=== PATIENT | male | born 1960 | race Caucasian/White ===

== ENCOUNTER 2019-04-28 01:32 | Emergency (ER) | payer OTHER ==
[2014-07-05 14:59] VITALS: BP 133/77
[~2019-04-28] VITALS: Ht 177.8 cm; Wt 83.9 kg
[~2019-04-28 01:32] MED LIST: DEXT30CA6 PO
--- NOTE | 2019-04-28 02:05 | PHYS DOC ---
Past History Past Medical History: Other Past Surgical History: Other Alcohol Use: None Drug Use: None Adult General Chief Complaint Chief Complaint: URINE CATHETER PROBLEM HPI HPI 58-year-old male presents with Samaniego catheter complication. The patient has had a Samaniego catheter for some time. 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 After the laceration patient with catheter in place to help him urinate more easily. The patient presents tonight because he is unable to pass urine through the catheter. It is now quite painful with lower abdominal pressure. The patient has a suprapubic and scrotal incision site that has not healed. The patient is seeing a surgeon and follow-up for this in 2 days. He is also having daily dressing changes in home. The patient is concerned that he will need to go back for additional surgery. He has been on an oral antibiotic, feels like the pressure may be building in his scrotum and inguinal area again patient denies fever or chills. The patient is diabetic. Review of Systems Review of Systems Constitutional: Denies fever or chills [] Eyes: Denies change in visual acuity, redness, or eye pain [] HENT: Denies nasal congestion or sore throat [] Respiratory: Denies cough or shortness of breath [] Cardiovascular: No additional information not addressed in HPI [] GI: Denies abdominal pain, nausea, vomiting, bloody stools or diarrhea [] : urinary retention, samaniego catheter [] Musculoskeletal: Denies back pain or joint pain [] Integument: Denies rash or skin lesions [] Neurologic: Denies headache, focal weakness or sensory changes [] Endocrine: Denies polyuria or polydipsia [] All other systems were reviewed and found to be within normal limits, except as documented in this note. Allergies Allergies Allergies Coded Allergies Type Severity Reaction Last Updated Verified meperidine Allergy Severe 07/05/14 No Physical Exam Physical Exam Constitutional: Well developed, well nourished, no acute distress, non-toxic appearance. [] HENT: Normocephalic, atraumatic, bilateral external ears normal, oropharynx moist, no oral exudates, nose normal. [] Eyes: PERRLA, EOMI, conjunctiva normal, no discharge. [] Neck: Normal range of motion, no tenderness, supple, no stridor. [] Cardiovascular:Heart rate regular rhythm, no murmur [] Lungs & Thorax: Bilateral breath sounds clear to auscultation [] Abdomen: Bowel sounds normal, soft, no tenderness, no masses, no pulsatile masses. [] Skin: Warm, dry, no erythema, no rash. [] Back: No tenderness, no CVA tenderness. [] Extremities: No tenderness, no cyanosis, no clubbing, ROM intact, no edema. [] Neurologic: Alert and oriented X 3, normal motor function, normal sensory function, no focal deficits noted. [] Psychologic: Affect normal, judgement normal, mood normal. : circumcised, bandage over suprapubic wound, clean with some blood beneath the surface. Scrotal gauze wet with urine, 2cm open incision of scrotum midline. [] EKG EKG [] Radiology/Procedures Radiology/Procedures [] Course & Med Decision Making Course & Med Decision Making Pertinent Labs and Imaging studies reviewed. (See chart for details) The patient's catheter appeared to not be functioning. It was removed by the nurse and the patient was able to spontaneously urinate without the catheter. It was urine mixed with clots and blood. We will not replace the catheter, but leave it out as he has office follow-up in 2 days and they planned to remove the catheter at that time. We will replace the dressing over the scrotum wound and leave the suprapubic dressing as it appears in tact and without complication. The patient is already on antibiotics. We will send his urine for lab analysis, but no changes will be made in his medications even if infection is found His physician can follow-up with the culture as needed. The patient is stable for discharge at this time. [] Dragon Disclaimer Dragon Disclaimer This electronic medical record was generated, in whole or in part, using a voice recognition dictation system. Departure Departure: Impression: Primary Impression: Open wound of scrotum Additional Impression: Samaniego catheter problem Disposition: 01 HOME, SELF-CARE Condition: STABLE Referrals: PCP,NO (PCP) Patient Instructions: Urinary Retention, Acute, Male, [id number], Wound Dehiscence, [id number] Problem Qualifiers Primary Impression: Open wound of scrotum Encounter type: initial encounter Qualified Codes: S31.30XA - Unspecified open wound of scrotum and testes, initial encounter Additional Impression: Samaniego catheter problem Encounter type: initial encounter Qualified Codes: T83.9XXA - Unspecified complication of genitourinary prosthetic device, implant and graft, initial encounter RAH HENAO DO Apr 28, 2019 02:05
[2019-04-28 02:38] LABS: BILIRUBIN,URINE NEG (NEG); CLARITY,URINE HAZY; COLOR,URINE YELLOW; GLUCOSE,URINE NEG (NEG); NITRITE,URINE NEG (NEG); RBC,URINE >40 /HPF (0-2); UROBILINOGEN,URINE 0.2 mg/dL (0.2 mg/dL)
[2019-04-28 02:39] LABS: BACTERIA,URINE FEW /HPF (0-FEW); SQUAMOUS EPITHELIAL CELL,UR FEW /LPF
== END 2019-04-28 02:20 | disposition home or self-care (01) ==
LOC: ER 01:32
DX: S31.30XA Unspecified open wound of scrotum and testes, initial encounter (principal); T83.9XXA Unspecified complication of genitourinary prosthetic device, implant and graft, initial encounter; Z88.8 Allergy status to other drugs, medicaments and biological substances; X58.XXXA Exposure to other specified factors, initial encounter; Y93.89 Activity, other specified; Y92.89 Other specified places as the place of occurrence of the external cause; Y99.8 Other external cause status
CPT/HCPCS: 81001; 87086; 99284

== ENCOUNTER → 2021-04-29 | Emergency (ER) | payer OTHER ==
[~2021-04-29] VITALS: Ht 177.8 cm; Wt 79.5 kg
[~2021-04-29] MED LIST changes: +CONTRAST GIVEN. MC PRN; +IOHEXOL 300 MG/ML 75 ML VIAL. IV ONE
[2021-04-29 11:54] VITALS: BP 133/77
--- NOTE | 2021-04-29 13:14 | PHYS DOC ---
Past History Past Medical History: Diabetes, Kidney Stones, Other (MINERVA KHAN APRN) Past Surgical History: Other (MINERVA KHAN APRN) Alcohol Use: None Drug Use: None (MINERVA KHAN APRN) General Adult EDM: Chief Complaint: GROIN PAIN HPI: HPI: Patient is a 60-year-old male presents with right-sided scrotal pain and right- sided facial swelling. Patient states his right eye was swollen shut due to the swelling. Patient states he did have some dental pain and called his PCP and was placed on Bactrim. Patient been taking the antibiotic for 3 days. Denies trouble breathing. Denies trouble with maintaining secretions. Patient has trouble with urination. Denies discharge or pain with urination . denies fever. Patient has history of diabetes, kidney stone. (MINERVA KHAN APRN) Review of Systems: Review of Systems: Constitutional: Denies fever or chills Eyes: Denies change in visual acuity HENT: Denies nasal congestion or sore throat Respiratory: Denies cough or shortness of breath Cardiovascular: Denies chest pain or edema GI: Denies abdominal pain, nausea, vomiting, bloody stools or diarrhea : Denies dysuria, discharge. Does report trouble with urination. Reports right-sided scrotal pain. Musculoskeletal: Denies back pain or joint pain Integument: Reports facial swelling Neurologic: Denies headache, focal weakness or sensory changes Endocrine: Denies polyuria or polydipsia Lymphatic: Denies swollen glands Psychiatric: Denies depression or anxiety (MINERVA KHAN APRN) Current Medications: Current Meds: Current Medications Medications (Trade) Dose Ordered Sig/Kaz Start Time Stop Time Status Last Admin Dose Admin Iohexol (Omnipaque 300 Mg/ml) 75 ml 1X ONCE 04/29/21 13:15 04/29/21 13:16 UNV (MINERVA KHAN APRN) Allergies: Allergies: Allergies Coded Allergies Type Severity Reaction Last Updated Verified meperidine Allergy Severe 07/05/14 No (MINERVA KHAN APRN) Physical Exam: PE: Constitutional: Well developed, well nourished, no acute distress, non-toxic appearance. [] HENT: Normocephalic, atraumatic, bilateral external ears normal, oropharynx moist, no oral exudates, nose normal. [] Eyes: PERRLA, EOMI, conjunctiva normal, no discharge. [] Neck: Normal range of motion, no tenderness, supple, no stridor. [] Cardiovascular:Heart rate regular rhythm, no murmur [] Lungs & Thorax: Bilateral breath sounds clear to auscultation [] Abdomen/groin: Right sided testicle swelling and pain. Bowel sounds normal, soft, no tenderness, no masses, no pulsatile masses. [] Skin: Right-sided facial redness, swelling Back: No tenderness, no CVA tenderness. [] Extremities: No tenderness, no cyanosis, no clubbing, ROM intact, no edema. [] Neurologic: Alert and oriented X 3, normal motor function, normal sensory function, no focal deficits noted. [] Psychologic: Affect normal, judgement normal, mood normal. [] (MINERVA KHAN APRN) Current Patient Data: Vital Signs: Vital Signs Date Time Temp Pulse Resp B/P (MAP) Pulse Ox O2 Delivery O2 Flow Rate FiO2 04/29/21 11:54 98.3 75 16 133/77 97 Room Air (MINERVA KHAN APRN) EKG: EKG: [] (MINERVA KHAN APRN) Radiology/Procedures: Radiology/Procedures: [] (MINERVA KHAN APRN) Heart Score: C/O Chest Pain: No Risk Factors: Risk Factors: DM, Current or recent (<one month) smoker, HTN, HLP, family history of CAD, obesity. Risk Scores: Score 0 - 3: 2.5% MACE over next 6 weeks - Discharge Home Score 4 - 6: 20.3% MACE over next 6 weeks - Admit for Clinical Observation Score 7 - 10: 72.7% MACE over next 6 weeks - Early Invasive Strategies (MINERVA KHAN APRN) Course & Med Decision Making: Course & Med Decision Making Pertinent Labs and Imaging studies reviewed. (See chart for details) [] 60-year-old male presents with right-sided scrotal pain and right-sided facial swelling. Patient states his facial swelling started about a week ago and was placed on antibiotics 3 days ago. Patient states that swelling has gotten worse and his eye was swollen this morning. Patient having trouble with urination and has right-sided testicle pain. Afebrile. Denies dysuria or discharge. Denies injury. Ultrasound of scrotum ordered to rule out acute abnormality. CT of orbits and facial soft tissue ordered to rule out abscess. Patient is informing nurse that he does not want to stay. Patient states he is in a call his doctor in the morning and make a follow-up appointment with her. Patient is concerned about a large ER bill. Patient signed AMA paperwork. Patient was hemodynamically stable upon discharge. (MINERVA KHAN APRN) Course & Med Decision Making I was the Attending physician on the above date of service of this patient. This patient was evaluated, examined, treated, and dispositioned from the emergency department by the mid-level practitioner. Although I was working at the time , no assistance was requested. Electronically signed, Paolo Rivera DO (PAOLO RIVERA DO) Tarik Disclaimer: Tarik Disclaimer: This electronic medical record was generated, in whole or in part, using a voice recognition dictation system. (MINERVA KHAN APRN) Departure Departure: Disposition: 07 LEFT AGAINST MEDICAL ADVICE Referrals: ELOISA JAVIER (PCP) MINERVA KHAN APRN Apr 29, 2021 13:14 PAOLO RIVERA DO Apr 30, 2021 08:02
== END | disposition left against medical advice (07) ==
LOC: ER 11:32
DX: N50.82 Scrotal pain (principal); R22.0 Localized swelling, mass and lump, head; N50.89 Other specified disorders of the male genital organs; K08.89 Other specified disorders of teeth and supporting structures; E11.9 Type 2 diabetes mellitus without complications; Z87.442 Personal history of urinary calculi; Z88.8 Allergy status to other drugs, medicaments and biological substances
CPT/HCPCS: 99281